=== PATIENT | female | born 1970 | race African-American/Black ===

== ENCOUNTER 2017-02-12 16:24 | Emergency (ER) | payer OTHER ==
--- NOTE | 2017-02-12 16:46 | ED Physician Chart ---
Chief Complaint/HPI - Patient Information Date Seen:: 02/12/17 Time Seen:: 16:35 Chief Complaint:: Laceration at L forehead at about 4 pm today. History of Present Illness:: Brought in by ambulance because pt sustained the above injury when she lost her balance while she was accidentally stepping on a moving pallet clem at work at about 4 pm today. No LOC. Pt has mild pain at laceration site. No CUADRA per se. No neck pain. No other bodily injury or pain. No N/V. No visual changes in terms of blurry vision or diplopia. No ataxia. No weakness or numbness. Last tetanus immunization is unknown. Allergies:: NKA Vitals:: Vital Signs - 8 hr 02/12/17 16:25 Temp 98.6 F HR 92 RR 16 BP 145/91 O2 Sat % 100 Historian:: Patient Family MD/PCP:: Dr. Sauer. LMP:: 01/31/17 Review:: Nurse's Note Reviewed Review of Systems - Review of Systems General/Constitutional: No fever, No chills, No weight loss, No weakness, No edema, No loss of appetite Skin: No rash, No bruising, Other (L forehead laceration.) Head: No headache, No light-headedness Eyes: No loss of vision, No pain, No diplopia ENT: No earache, No nasal drainage, No sore throat, No tinnitus Neck: No neck pain, No swelling, No thyromegaly, No stiffness, No mass noted Cardio Vascular: No chest pain, No palpitations, No edema Pulmonary: No SOB, No cough, No wheezing GI: No nausea, No vomiting, No diarrhea, No pain, No melena, No hematochezia G/U: No dysuria, No frequency, No hematuria Welder/Fitter: No vaginal discharge, No abnormal vaginal bleed Musculoskeletal: No bone or joint pain, No back pain, No muscle pain Endocrine: No polyuria, No polydipsia Psychiatric: No prior psych history Hematopoietic: Bruising Allergic/Immuno: No urticaria, No angioedema Neurological: No syncope, No focal symptoms, No weakness, No paresthesia, No headache, No seizure, No dizziness, No confusion, No vertigo Past Medical History - Past Medical History Past Medical History: HTN, Other (Chronic anemia) Family History: Diabetes Melitus (mother), HTN (mother) Social History: Non Smoker, No Alcohol, No Drug Use, Single, Employed, Other ( Lives with her daughter.) Employment:: Product promotion. Surgical History: None Psychiatricy History: None Medication: Reviewed Family Medical History - Family Member mother History Unknown: Yes Physical Exam - Physical Examination General/Constitutional: Awake, Well-developed, well-nourished, Alert, No distress, GCS 15, Non-toxic appearing, Ambulatory Other Gen/Cons comments:: Breathes comfortably, speaks clearly, interacts normally, and ambulates without difficulty. Head: Atraumatic (except an approx 1 cm superficial laceration noticed in L forehead. No bony tapering or swelling. No exudate. No active bleeding.) Eyes: Lids, conjuctiva normal, PERRL, EOMI Skin: Well hydrated, No lymphadenopathy ENMT: External ears, nose nl, Nasal exam nl, Lips, teeth, gums nl, Oropharynx nl Neck: Nontender, Full ROM w/o pain, No nuchal rigidity, No mass, No stridor Respiratory: Nl effort/Exclusion, Clear to Auscultation, No Wheeze/Rhonchi/Rales Cardio Vascular: RRR, No murmur, gallop, rubs GI: No tenderness/rebounding/guarding, No organomegaly, Normal BS's, Nondistended, No mass/bruits Other GI comments:: Abdomen is obese but soft. Neuro/Psych: Alert/oriented (x 3), DTR's symmetric, Normal sensory exam, Normal motor strength, Judgement/insight normal, Mood normal, Normal gait, No focal deficits Other Neuro/Psych comments:: CN II to XII are grossly intact. Cerebellar exam (F to N, DARI): normal. Misc: normal gait, Normal back, No paraspinal tenderness ED Septic Shock - . Is Septic Shock (SBP<90, OR Lactate>4 mmol\L) present?: No - <6hrs of presentation: Vital Signs: Vital Signs - 8 hr 02/12/17 16:25 Temp 98.6 F HR 92 RR 16 BP 145/91 O2 Sat % 100 Reassessment (Disposition) - Reassessment Reassessment:: 1800 Laceration repair: Discussed with patient about treatment options. Pt chose to have Dermabond for laceration repair in L forehead. Wound length is about 1 cm. Wound was preped in usual sterile manner. Wound was cleansed with betadine and then was well irrigated with sterile normal saline. Wound was explored. No foreign body was found. Wound was well approximated with Dermabond. Pt tolerated the procedure well without immediate complication. 1805 Pt feels well. No CUADRA or pain. Pt requests to go home now. Aftercare instructions have been given. Reassessment Condition:: Improved - Diagnosis Diagnosis:: S/P mechanical fall with superficial left forehead laceration, s/p laceration repair with Dermabond. Stable. Doctor's First Report of Occupational Injury or Illness has been completed and filed. - Aftercare/Follow up Instructions Aftercare/Follow-Up Instructions:: Refer to Discharge Instructions Notes:: May take Tylenol 500 mg tab one tab po q6h prn pain. Wound care instructions given. keep wound clean and dry. Head Injury Instructions given. F/U at [facility] in one day for recheck. Return to ER immediately if condition worsens or if any further questions/problems. Medication Prescribed:: None - Patient Disposition Discharge/Transfer:: Home Time:: 18:10 Condition at Disposition:: Stable, Improved ED Discharge Plan - Patient Disposition Admit/Discharge/Transfer: PT DISCHARGED HOME Instructions: Open Wound, Forehead, [id number], Laceration Care, Adult, Easy- to-Read
== END 2017-02-12 18:01 | disposition home or self-care (01) ==
LOC: ER 16:24
DX: S01.81XA Laceration without foreign body of other part of head, initial encounter (principal); I10 Essential (primary) hypertension; X58.XXXA Exposure to other specified factors, initial encounter; Y93.89 Activity, other specified; Y92.89 Other specified places as the place of occurrence of the external cause; Y99.8 Other external cause status
CPT/HCPCS: 12011; Z7502; Z7610

== ENCOUNTER 2018-07-27 12:07 | Emergency (ER) | payer MEDICAID, OTHER ==
[2018-07-27] MEDS ORDERED: Lactated Ringer 1,000 ML IV ONE ×2 (12:48→14:41)
[2018-07-27 13:28] LABS: ALB/GLOB RATIO 0.7 (1.0-1.8); ALBUMIN 3.4 gm/dL (3.7-5.3); ALKALINE PHOSPHATASE 55 U/L (34-104); ANION GAP 14.5 (7.0-16.0); BILIRUBIN,TOTAL 0.4 mg/dL (0.3-1.0); BUN - UREA NITROGEN 11 mg/dL (7-25); CARBON DIOXIDE 17.7 mEq/L (21.0-31.0); CHLORIDE 110 mEq/L (98-107); CREATININE - SERUM 0.8 mg/dL (0.6-1.2); GFR AFRICAN-AMERICAN > 60.0 ml/min (>90); GFR NON AFRICAN-AMERICAN > 60.0 ml/min; GLUCOSE 106 mg/dL (70-105); MAGNESIUM 1.9 mg/dL (1.9-2.7); PHOSPHOROUS 3.4 mg/dL (2.5-5.0); POTASSIUM SERUM 3.2 mEq/L (3.5-5.1); SGOT 9 U/L (13-39); SGPT/ALT 6 U/L (7-52); SODIUM SERUM 139 mEq/L (136-145)
[2018-07-27] MEDS ORDERED: IOHEXOL 300mgI/mL 100 ML VIAL ONE (13:41)
[2018-07-27] MEDS ORDERED: KCL 20mEq/100mL Premix 20 MEQ/100 ML PIGGYBACK IV ONE ×2 (13:49→14:02)
--- NOTE | 2018-07-27 14:20 | Diagnostic Imaging Report ---
CT soft tissue neck with IV contrast HISTORY: Dysphagia, inability to swallow saliva COMPARISON: None Technique: Axial images of the soft tissue neck were obtained without IV contrast. Reconstructions were made. Total DLP is 270, CTD I 9 Findings: There is diffuse air seen throughout the prevertebral fat planes extending through the base of the clivus. This extends inferiorly to the mediastinum with pneumomediastinum noted. The bilateral parapharyngeal fat planes are preserved. There is mild thickening of the epiglottis. There is also fluid retained seen along the hypopharyngeal region extending to the bilateral pyriform sinuses. There is also thickening of the visualized esophagus with indeterminate area of high density seen along the proximal esophagus located posterior to the trachea at the level of the thyroid gland. This area of hyperdensity measures 1.5 centers craniocaudal x 0.7 cm transverse. Esophageal wall thickening is noted in this region. Enlarged multinodular thyroid gland is seen with largest nodule in the left lobe measuring 2.6 x 2.2 cm. The visualized lung demonstrate no evidence of pneumothorax. Mild degenerative change of the spine are noted. There is mild atherosclerosis. IMPRESSION: Pneumomediastinum with air seen extending throughout the prevertebral soft tissues follow-up to the base of the clivus. Please correlate clinically as this may be related to patient's findings of dysphagia. Note is made of atypical high density area within the proximal esophageal region the level of the thyroid gland. There is also esophageal wall thickening. This may represent swallowed material should be correlated clinically. Esophageal wall thickening is noted. As such, infectious and or neoplastic process cannot be excluded. Retained secretions seen along the hypopharyngeal region and piriform sinuses. Enlarged thyroid gland with multiple nodules the largest within the left lobe measuring 2.6 x 2.2 cm. No pneumothorax within the visualized portions of the lungs. Critical results were discussed with Dr. Bansal on 07/27/2018 at 2:15 PM
[2018-07-27 14:23] LABS: INR 1.04 (0.5-1.4); PROTHROMBIN TIME (TEST) 10.8 SECONDS (9.5-11.5)
--- NOTE | 2018-07-27 14:37 | ED Physician Chart ---
ED Chief Complaint/HPI - Patient Information Date Seen:: 07/27/18 Time Seen:: 12:26 Chief Complaint:: dysphagia and inability to swallow saliva History of Present Illness:: dysphagia and inability to swallow saliva. She tried to swallow a ferrous sulfate pill at 3:30 p.m. to 4 p.m. Allergies:: Allergies Allergy/AdvReac Type Severity Reaction Status Date / Time No Known Allergies Allergy Verified 02/12/17 17:07 Vitals:: Vital Signs - 8 hr 07/27/18 12:26 Temp 97.7 F HR 93 RR 16 BP 152/74 O2 Sat % 100 Historian:: Patient, Family Member Review:: Nurse's Note Reviewed ED Review of Systems - Review of Systems General/Constitutional: No fever, No chills, No weight loss, No weakness, No diaphoresis, No edema, No loss of appetite Skin: No skin lesions, No rash, No bruising Head: No headache, No light-headedness Eyes: No loss of vision, No pain, No diplopia ENT: No earache, No nasal drainage, No sore throat, No tinnitus Neck: Neck pain, No swelling, No thyromegaly, No mass noted Cardio Vascular: No chest pain, No palpitations, No PND, No orthopnea, No edema Pulmonary: No SOB, No cough, No sputum, No wheezing GI: No nausea, No vomiting, No diarrhea, No pain, No melena, No hematochezia, No constipation, No hematemesis G/U: No dysuria, No frequency, No hematuria Musculoskeletal: No bone or joint pain, No back pain, No muscle pain Endocrine: No polyuria, No polydipsia Psychiatric: No prior psych history, No depression, No anxiety, No suicidal ideation Hematopoietic: No bruising, No lymphadenopathy Allergic/Immuno: No urticaria, No angioedema Neurological: No syncope, No focal symptoms, No weakness, No paresthesia, No headache, No seizure, No dizziness, No confusion, No vertigo ED Past Medical History - Past Medical History Obtainable: Yes Past Medical History: HTN, Other (anemia; RLE wound care problems) Family Medical History - Family Member mother History Unknown: Yes ED Physical Exam - Physical Examination Other Gen/Cons comments:: unable to swallow saliva Head: Atraumatic Eyes: Lids, conjuctiva normal, PERRL, EOMI Skin: Nl inspection, No rash, No skin lesions, No ecchymosis, Well hydrated, No lymphadenopathy ENMT: External ears, nose nl Other Neck comments:: internal pain on the left. no crepitance. Respiratory: Nl effort/Exclusion, Clear to Auscultation, No Wheeze/Rhonchi/Rales Cardio Vascular: RRR, No murmur, gallop, rubs, NL S1 S2 GI: No tenderness/rebounding/guarding, No organomegaly, No hernia, Normal BS's, Nondistended, No mass/bruits, No McBurney tenderness : No CVA tenderness Extremities: No tenderness or effusion Neuro/Psych: Alert/oriented, Normal sensory exam, Normal motor strength, Judgement/insight normal, Mood normal, Normal gait, No focal deficits Misc: Normal back, No paraspinal tenderness ED Labs/Radiology/EKG Results - Lab Results Results: Laboratory Tests 07/27/18 07/27/18 07/27/18 12:55 12:55 12:55 PT 10.8 INR 1.04 PTT (Actin FS) 25.1 L Sodium 139 Potassium 3.2 L Chloride 110 H Carbon Dioxide 17.7 L Anion Gap 14.5 BUN 11 Creatinine 0.8 Est GFR ( Amer) > 60.0 Est GFR (Non-Af Amer) > 60.0 BUN/Creatinine Ratio 13.8 Glucose 106 H Calcium 9.0 Phosphorus 3.4 Magnesium 1.9 Total Bilirubin 0.4 AST 9 L ALT 6 L Alkaline Phosphatase 55 Troponin I 0.01 Total Protein 8.0 Albumin 3.4 L Globulin 4.6 Albumin/Globulin Ratio 0.7 L ED Assessment - Assessment General Assessment: CALLED BY RADIOLOGY REGARDING FREE AIR IN THE SOFT TISSUES, RETAINED FOREIGN BODY IN THE LEFT CERVICAL ESOPHAGUS AND WITH PNEUMOMEDIASTINUM. EMERGENT PHONE CALL MADE TO JAVIER BOOGIE OF [facility] AT 14 :22 REGARDING EMERGENT NEED FOR CHEST SURGEON AND ENT SURGEON TO TAKE THIS PATIENT TO THE OPERATING ROOM. ED Septic Shock - . Is Septic Shock (SBP<90, OR Lactate>4 mmol\L) present?: No - <6hrs of presentation: Vital Signs: Vital Signs - 8 hr 07/27/18 12:26 Temp 97.7 F HR 93 RR 16 BP 152/74 O2 Sat % 100 ED Reassessment (Disposition) - Reassessment Reassessment Condition:: Unchanged - Diagnosis Diagnosis:: Cervical esophageal perforation Retained foreign body left neck Pneumomediastinum - Patient Disposition Discharge/Transfer:: Acute Care (other hosp) Condition at Disposition:: Stable, Unchanged
[2018-07-27] MEDS ORDERED: Piperacillin Sodium/Tazobact 3.375 gm Vial IV ONE (15:08)
[2018-07-27] MEDS ORDERED: metroNIDAZOLE 500mg/NS 100mL 500 MG/100 ML BAG IV ONE ×2 (16:00→17:12)
[2018-07-27 16:43] LABS: RED BLOOD COUNT 3.58 Mil/cmm (3.80-5.10); WHITE BLOOD COUNT 8.9 Th/cmm (4.8-10.8)
[2018-07-27 16:44] LABS: HEMOGLOBIN 6.2 gm/dL (12-16)
[2018-07-27 16:45] LABS: MEAN CELL VOLUME 55.9 fl (81-100); MEAN CORPUSCULAR HEMOGLOBIN 17.4 pg (27.0-31.0); MEAN CORPUSCULAR HGB CONC 31.1 pg (28.0-36.0); PLATELET COUNT 720 Th/cmm (150-400); RED CELL DISTRIBUTION WIDTH 20.8 % (11.5-20.0)
[2018-07-27 16:46] LABS: MEAN PLATELET VOLUME 7.8 fl
[2018-07-27 16:47] LABS: BAND NEUTROPHILE 0 % (0-10); LYMPHOCYTE 10 % (20-50); MONOCYTE 4 % (2-10); NEUTROPHILS 85 % (40-80)
[2018-07-27 16:48] LABS: BASOPHIL 0 % (0-3); EOSINOPHIL 1 % (0-5)
[2018-07-27 16:49] LABS: ANISOCYTOSIS 1+
[2018-07-27] MEDS ORDERED: D5LR 1,000 ML IV ONE (19:44)
--- NOTE | 2018-07-28 09:21 | Diagnostic Imaging Report ---
CHEST X-RAY: AP view INDICATION: Pneumomediastinum COMPARISON: CT neck the same day FINDINGS: There is no focal consolidation or pleural effusions The heart is at the upper limits of normal in size. No gross pneumomediastinum identified. No pneumothorax. Degenerative changes of the spine are noted. IMPRESSION: No evidence of gross pneumomediastinum. Please refer to the soft tissue neck the same day for further details. No pneumothorax identified.
== END 2018-07-28 02:20 | disposition short-term general hospital (02) ==
LOC: ER 12:07
DX: K22.3 Perforation of esophagus (principal); J98.2 Interstitial emphysema; I10 Essential (primary) hypertension
CPT/HCPCS: 99285; 96365; 96367; 96368; 93005; 71045; 70491; 84484; 86900; 86850; 86922; 36415; 86901; 83605; 85007; 85025; 85610; 83735; 84100; 80053; 87040 ×2; 36430; P9016 ×2; J3480; J2543; J7121; J7040; 90799; Q9967; Z7610